=== PATIENT | male | born 1955 | race Caucasian/White ===

== ENCOUNTER 2016-09-23 08:07 | Outpatient (CLI) | payer OTHER ==
[2016-09-23] MEDS ORDERED: LIDOCAINE 1% 300 MG/30 ML SDV ONE (09:34)
[2016-09-23 09:44] LABS: HEMATOCRIT 40.7 % (40.0-51.0)
[2016-09-23 09:56] LABS: APTT 26.7 SEC (23.0-38.0); INR 0.96 (0.83-1.16); PROTIME(PATIENT) 12.7 SEC (12.0-15.0)
[2016-09-23] MEDS ORDERED: MIDAZOLAM 2 MG/2 ML VIAL ONE (10:14)
[2016-09-23] MEDS ORDERED: fentaNYL 100 MCG/2 ML INJ ONE (10:14)
[2016-09-23] MEDS ORDERED: oxyCODONE IR 5 MG TAB PO PRN (14:48)
[2016-09-23] MEDS ORDERED: ONDANSETRON 4 MG/2 ML VIAL IVP PRN (14:48)
== END 2016-09-23 14:03 | disposition home or self-care (01) ==
LOC: FIMAGING 08:07
PROC: 0FB03ZX Excision of Liver, Percutaneous Approach, Diagnostic (ICD-10-PCS; principal; 2016-09-23 11:00)
DX: K75.9 Inflammatory liver disease, unspecified (principal); H18.04 Kayser-Fleischer ring
CPT/HCPCS: 88313-90; J2250; J3010